=== PATIENT | female | born 1955 | race Caucasian/White ===

== ENCOUNTER → 2017-10-08 | Outpatient (CLI) | payer SELFPAY ==
[~2017-10-08] MED LIST: HYDR-3533 PO; LIDO5DIS35 TOPICAL; LISI10TA3 PO; VIST50CA PO; Z.0.NO CURRENT MEDS; ZOCO10TA PO
--- NOTE | 2017-10-08 11:14 | RADRPT ---
EXAM DATE/TIME: 10/08/2017 00:00 [place] COMPARISON: No previous studies available for comparison. OUTSIDE STUDY REVIEWED: INDICATIONS : US guided pelvic mass biopsy FINDINGS: Outside ultrasound was reviewed. A prominent inguinal lymph node was identified as clearly contains a fatty hilum and is likely reactive. As such, I would recommend either a CT scan of the pelvis with I V contrast to evaluate for additional mass lesions or simply a followup ultrasound in 3 months to ens ure stability or resolution of the likely reactive node RECOMMENDATION: Followup CT scan of the pelvis with IV contrast. If node appears suspicious or other mass lesion s identified, consider biopsy at that time. Otherwise, followup inguinal ultrasound in 3 months to in sure stability/resolution Jamey Paredes MD on October 08, 2017 at 11:01 Board Certified Radiologist. This report was verified electronically.
== END ==
LOC: HRAD 08:48
PROVIDERS: ATTEND Surgery
DX: R19.00 Intra-abdominal and pelvic swelling, mass and lump, unspecified site (principal)
CPT/HCPCS: 76140

== ENCOUNTER 2017-12-29 06:29 | Day surgery (SDC) | payer OTHER ==
[~2017-12-29] VITALS: Ht 154.9 cm; Wt 109.1 kg
[2017-12-29] MEDS ORDERED: ZOLP5TAB3 PO (07:16)
[2017-12-29] MEDS ORDERED: SIMV40TA PO (07:16)
[2017-12-29] MEDS ORDERED: TRAZ100T10 PO (07:16)
[2017-12-29] MEDS ORDERED: LISI-515 PO (07:16)
[2017-12-29] MEDS ORDERED: VITACAP7 PO (07:16)
[2017-12-29 07:29] VITALS: BP 150/83; PULSE 74; RESP 20; TEMP 98.7; O2SAT 96
[2017-12-29] MEDS ORDERED: SODIUM CHLORIDE 0.9% 1000 ML IV SCH (08:00)
[2017-12-29] MEDS ORDERED: ceFAZolin 2 GM PREMIX 50 ML - implanted port/tunneled catheter insertion IV SCH (08:00)
[2017-12-29] MEDS ORDERED: VANCOMYCIN 1000 MG/NS 250 ML - implanted port/tunneled catheter IV SCH ×2 (08:00)
[2017-12-29] MEDS ORDERED: MIDAZOLAM HCL 5 MG/5 ML VIAL ONE (08:11)
[2017-12-29] MEDS ORDERED: fentaNYL CITRATE 250 MCG/5 ML AMP ONE (08:12)
[2017-12-29] MEDS ORDERED: LIDOCAINE 1%/EPINEPHrine 1:100,000 SOLN 30 ML VIAL ONE (08:28)
--- NOTE | 2017-12-29 09:08 | PD.RAD ---
Post Procedure Progress Note Pre Procedure Diagnosis: (1) Carcinoma in situ, vulva Post Procedure Diagnosis: (1) Carcinoma in situ, vulva Procedure Date: Dec 29, 2017 Supervising Radiologist: Alan Moreno Proceduralist/Assist: Keyla Kim, RT(R), Chelsea Mays RT(R) Anesthesia: Conscious Sedation Plan of Activity Patient to Unit: [facility] Patient Condition: Good See PACS Report for procedural detail/treatment Alan Moreno MD Dec 29, 2017 09:08
[2017-12-29 09:15] VITALS: BP 127/63; PULSE 84; RESP 16; TEMP 98.1; O2SAT 95
[2017-12-29 09:30] VITALS: BP 125/81; PULSE 85; RESP 16; O2SAT 95
--- NOTE | 2017-12-29 09:38 | RADRPT ---
EXAM DATE: 12/29/2017 9:28 AM EDT AGE/SEX: 62 years / Female INDICATIONS: Patient with history of squamous cell carcinoma of the vulva in need of [id number] pl acement. CLINICAL DATA: This is the patient's initial encounter. Patient reports that signs and symptoms have been present for > 1 year and indicates a pain score of 0/10. MEDICAL/SURGICAL HISTORY: Hypertension. Hypercholesterolemia. Pelvic mass. Radical resection o f of left vulva.Pelvic mass biopsy.Colposcopy COMPARISON: No prior exams available for comparison. FLUORO TIME (min): 0.2 IMAGE SERIES: 2 SEDATION TIME (min): 30 MEDICATION(S): 3.5mg midazolam (Versed) IV 175mcg fentanyl (Sublimaze) IV Prophylactic antibiotics were administered with appropriate pre-procedure timing. Vancomycin within 2 hrs of procedure, Ancef (or alternative) within 1 hr of procedure. DEVICE(S): Right 8F Xcela plus port . . PROCEDURE : 1. Continuous pulse oximetry and EKG monitoring. 2. Intravenous conscious sedation. 3. Ultrasound guidance for venous access. 4. Fluoroscopic guided implantable central venous port placement. The patient was placed supine. The neck was prepped in sterile fashion. Full sterile technique was u sed, including cap, mask, sterile gloves and gown, and a large sterile sheet. Hand hygiene and 2% ch lorhexidine Betadine was utilized per protocol for cutaneous antisepsis with appropriate dry time for site. Sterile gel and sterile probe cover were utilized for ultrasound guidance. The skin and sub cutaneous tissues were infiltrated with local anesthetic solution. Under direct ultrasound guidance, central venous access was accomplished in the targeted vessel. The ultrasound images depicting access guidance were stored and saved to PACS for permanent record. A s ubcutaneous pocket was created using blunt dissection. The port was introduced to the pocket. The c atheter tubing was fed through a subcutaneous tunnel to the venotomy site. The catheter tubing was c ut to a suitable length and then was introduced through a valved Peel-Away sheath and positioned with catheter tubing tip at the cavo-atrial junction level. The pocket incision was closed with subcutic ular Vicryl suture. Steri-Strips were applied. The port was flushed and locked with heparin solutio n per protocol. Sterile dressing was applied to the site. The patient tolerated the procedure well. Conscious sedation was performed with the prescribed dosages and duration as above in the presence of an independent trained radiology nurse to assist in the monitoring of the patient. EKG and oximetry remained stable throughout the procedure. The patient tolerated the procedure well and there were no complications. The patient was sent to post anesthesia recovery in stable condition. CONCLUSION: 1. Uncomplicated ultrasound and fluoroscopic guided implanted central venous port catheter placement as described in detail above. An 8 Sami Power port was placed. Electronically signed by: Alan Moreno MD 12/29/2017 9:36 AM EDT
[2017-12-29 10:00] VITALS: BP 127/75; PULSE 81; RESP 16; O2SAT 97
[2017-12-29 10:30] VITALS: BP 125/72; PULSE 79; RESP 16; O2SAT 97
[2017-12-29 11:00] VITALS: BP 123/74; PULSE 82; RESP 16; O2SAT 97
== END 2017-12-29 11:05 | disposition home or self-care (01) ==
LOC: HROP 06:29 → HRIP 06:43 → HROP 11:05
PROVIDERS: ATTEND Obstetrics & Gynecology Gynecologic Oncology
DX: C51.9 Malignant neoplasm of vulva, unspecified (principal); I10 Essential (primary) hypertension; E78.00 Pure hypercholesterolemia, unspecified
CPT/HCPCS: 36561; 76937; 77001; 99152; 99153; C1788; J1642; J2250; J3010